=== PATIENT | female | born 1980 | race African-American/Black ===

== ENCOUNTER 2023-01-29 15:06 | Emergency (ER) | payer OTHER ==
[~2023-01-29] VITALS: Ht 175.3 cm; Wt 102.5 kg
[2023-01-29] MEDS ORDERED: cloNIDine HCL 0.1 MG TAB PO ONE (15:30)
[2023-01-29] MEDS ORDERED: KETOROLAC TROMETH 60MG/2ML VIAL IM ONE (15:30)
[2023-01-29] MEDS ORDERED: HYDROcodone-ACET 10/325MG TAB PO ONE (15:30)
[2023-01-29] MEDS ORDERED: CLON0.2T PO (16:56)
[2023-01-29] MEDS ORDERED: HYDR-4798 PO (16:56)
[2023-01-29 17:55] VITALS: BP 157/86
== END 2023-01-29 18:06 | disposition home or self-care (01) ==
LOC: ER 15:06
DX: I16.0 Hypertensive urgency (principal); M54.12 Radiculopathy, cervical region; M47.812 Spondylosis without myelopathy or radiculopathy, cervical region; Z79.899 Other long term (current) drug therapy; Z88.8 Allergy status to other drugs, medicaments and biological substances
CPT/HCPCS: 72125; 73030; 96372; 99285; J1885

== ENCOUNTER 2023-02-10 13:19 | Emergency (ER) | payer OTHER ==
[~2023-02-10] VITALS: Ht 175.3 cm; Wt 101.7 kg
[~2023-02-10 13:19] MED LIST: CLON0.2T PO; HYDR-4798 PO
[2023-02-10 13:39] VITALS: BP 148/108
== END 2023-02-10 17:38 | disposition left against medical advice (07) ==
LOC: ER 13:19
DX: M79.602 Pain in left arm (principal); R20.0 Anesthesia of skin; Z53.21 Procedure and treatment not carried out due to patient leaving prior to being seen by health care provider
CPT/HCPCS: 93005

== ENCOUNTER 2023-04-12 06:51 | Emergency (ER) | payer OTHER ==
[~2023-04-12] VITALS: Ht 175.3 cm; Wt 100.0 kg
[2023-04-12 07:24] VITALS: BP 149/95
[2023-04-12] MEDS ORDERED: TETRACAINE HCL 0.5% OPTH(EYE) SOLN 4ML EACHEYE ONE (07:45)
[2023-04-12] MEDS ORDERED: ERY05OO OP (07:57)
== END 2023-04-12 08:10 | disposition home or self-care (01) ==
LOC: ER 06:51
DX: S05.02XA Injury of conjunctiva and corneal abrasion without foreign body, left eye, initial encounter (principal); I10 Essential (primary) hypertension; Z88.6 Allergy status to analgesic agent; Z88.5 Allergy status to narcotic agent; Z79.1 Long term (current) use of non-steroidal anti-inflammatories (NSAID); Z79.899 Other long term (current) drug therapy; X58.XXXA Exposure to other specified factors, initial encounter; Y93.89 Activity, other specified; Y92.89 Other specified places as the place of occurrence of the external cause; Y99.8 Other external cause status

== ENCOUNTER 2023-05-20 10:47 | Emergency (ER) | payer OTHER ==
[~2023-05-20] VITALS: Ht 175.3 cm; Wt 101.8 kg
[~2023-05-20 10:47] MED LIST changes: +ERY05OO OP
[2023-05-20] MEDS ORDERED: cloNIDine HCL 0.1 MG TAB PO ONE (11:15)
[2023-05-20 11:25] LABS: Basophils # (auto) 0 10 ^3/uL (0-0.2); Basophils % (auto) 0.8 % (0.0-2.0); Eosinophils # (auto) 0 10 ^3/uL (0-0.8); Eosinophils % (auto) 0.3 % (0.0-7.0); Hematocrit 40.1 % (36.0-46.0); Hemoglobin 13.7 g/dL (12.2-16.2); Lymphocytes # (auto) 1.7 10 ^3/uL (0.4-5.4); Lymphocytes % (auto) 39.2 % (10.0-50.0); Mean Corpuscular Hemoglobin 33.1 pg (28.0-32.0); Mean Corpuscular Hgb Conc. 34.1 g/dL (32.0-36.0); Mean Corpuscular Volume 97.1 fL (80.0-100.0); Monocytes # (auto) 0.3 10 ^3/uL (0-1.3); Monocytes % (auto) 6.3 % (0.0-12.0); Neutrophils # (auto) 2.3 10 ^3/uL (1.6-8.6); Neutrophils % (auto) 53.4 % (37.0-80.0); Nucleated Red Blood Cells % 0.3 %; Red Blood Cells 4.13 10^6/uL (4.0-5.20); Red Cell Distribution Width 13.3 % (11.8-14.3); White Blood Cell 4.3 10^3/uL (4.4-10.8)
[2023-05-20 11:47] LABS: Albumin 3.7 g/dL (3.4-5.0); Calcium 8.5 mg/dL (8.5-10.1); Potassium 4.1 mmol/L (3.5-5.1)
[2023-05-20 11:52] LABS: BUN/Creatinine Ratio 13.6 (10.0-20.0); Bilirubin, Total 0.4 mg/dL (0.2-1.0); Total Protein 7.6 g/dL (6.4-8.2)
[2023-05-20 12:13] VITALS: BP 141/93; PULSE 58; RESP 17; TEMP 97.6; O2SAT 100
== END 2023-05-20 12:57 | disposition home or self-care (01) ==
LOC: ER 10:47
DX: I16.0 Hypertensive urgency (principal); I10 Essential (primary) hypertension; R51.9 Headache, unspecified; Z90.710 Acquired absence of both cervix and uterus; Z88.6 Allergy status to analgesic agent
CPT/HCPCS: 36415; 70450; 80053; 84484; 85025; 93005

== ENCOUNTER 2023-09-08 10:12 | Emergency (ER) | payer BC, OTHER ==
[~2023-09-08] VITALS: Ht 172.7 cm; Wt 100.0 kg
[2023-09-08 10:33] VITALS: BP 129/83; PULSE 99; TEMP 99.3
[2023-09-08] MEDS ORDERED: IPRATROPIUM BROM 0.5 MG/2.5ML INH SOL NEB ONE (10:45)
[2023-09-08] MEDS ORDERED: ONDANSETRON ODT 4 MG TAB PO ONE (10:45)
[2023-09-08] MEDS ORDERED: ALBUTEROL MEDNEB 2.5 mg/3ml NEB NEB ONE (10:45)
[2023-09-08 10:47] VITALS: RESP 18; O2SAT 98
[2023-09-08 11:18] LABS: COVID19 ANTIGEN SOFIA FIA NEGATIVE (NEGATIVE); Rapid Influenza B Negative (Negative)
[2023-09-08 11:20] LABS: Rapid Influenza A Positive (Negative)
[2023-09-08] MEDS ORDERED: LORA10CA PO (11:41)
[2023-09-08] MEDS ORDERED: ACET500T58 PO (11:41)
[2023-09-08] MEDS ORDERED: TAMIFLU PO (11:41)
[2023-09-08] MEDS ORDERED: BENZ100C97 PO (11:41)
== END 2023-09-08 11:49 | disposition home or self-care (01) ==
LOC: ER 10:12
DX: J10.1 Influenza due to other identified influenza virus with other respiratory manifestations (principal); I10 Essential (primary) hypertension; Z90.710 Acquired absence of both cervix and uterus; Z20.822 Contact with and (suspected) exposure to COVID-19
CPT/HCPCS: 36415; 71046; 87426; 87804; 94640; 99284; J7644; Q0162

== ENCOUNTER 2023-09-12 07:06 | Emergency (ER) | payer BC, OTHER ==
[~2023-09-12] VITALS: Ht 172.7 cm; Wt 100.0 kg
[~2023-09-12 07:06] MED LIST changes: +ACET500T58 PO; +BENZ100C97 PO; +LORA10CA PO; +TAMIFLU PO
[2023-09-12 08:09] LABS: Basophils # (auto) 0 10 ^3/uL (0-0.2); Basophils % (auto) 0.4 % (0.0-2.0); Eosinophils # (auto) 0 10 ^3/uL (0-0.8); Eosinophils % (auto) 0.1 % (0.0-7.0); Hematocrit 42.4 % (36.0-46.0); Hemoglobin 14.3 g/dL (12.2-16.2); Lymphocytes # (auto) 2.1 10 ^3/uL (0.4-5.4); Lymphocytes % (auto) 27.9 % (10.0-50.0); Mean Corpuscular Hemoglobin 31.8 pg (28.0-32.0); Mean Corpuscular Hgb Conc. 33.6 g/dL (32.0-36.0); Mean Corpuscular Volume 94.6 fL (80.0-100.0); Monocytes # (auto) 0.4 10 ^3/uL (0-1.3); Monocytes % (auto) 5.4 % (0.0-12.0); Neutrophils # (auto) 4.9 10 ^3/uL (1.6-8.6); Neutrophils % (auto) 66.2 % (37.0-80.0); Red Blood Cells 4.48 10^6/uL (4.0-5.20); Red Cell Distribution Width 13.1 % (11.8-14.3); White Blood Cell 7.5 10^3/uL (4.4-10.8)
[2023-09-12 08:30] LABS: Alanine Aminotransferase 55 U/L (7-40); Albumin 5.2 g/dL (3.2-4.8); Alkaline Phosphatase 43 U/L (46-116); Anion Gap 14 (5-15); Aspartate Aminotransferase 30 U/L (13-40); BUN/Creatinine Ratio 11.5 (10.0-20.0); Blood Urea Nitrogen 15 mg/dL (9-23); Calcium 9.9 mg/dL (8.5-10.1); Carbon Dioxide 26 mmol/L (20-30); Chloride 95 mmol/L (98-107); Glucose 102 mg/dL (74-106); Potassium 3.3 mmol/L (3.5-5.1); Sodium 135 mmol/L (136-145)
[2023-09-12 08:31] LABS: Bilirubin, Total 1.5 mg/dL (0.2-1.0); Total Protein 8.6 g/dL (5.7-8.2)
[2023-09-12] MEDS ORDERED: ONDANSETRON HCL 4 MG/2 ML VIAL IV ONE (08:45)
[2023-09-12] MEDS ORDERED: SODIUM CHLORIDE 0.9% 1,000 ML IV ONE (08:45)
[2023-09-12] MEDS ORDERED: ZOFR4T PO (09:21)
[2023-09-12 13:54] VITALS: BP 156/95; PULSE 97; RESP 17; TEMP 98; O2SAT 99
[2023-09-12 14:02] LABS: Urine Bacteria MOD /hpf (None Seen); Urine Blood Negative /uL (Negative); Urine Clarity HAZY (Clear); Urine Color Yellow (Yellow); Urine Hyaline Cast FEW /lpf (0 - 2); Urine Mucus FEW (None Seen); Urine Protein, UAD 1+ (Negative); Urine WBC 18 /hpf (0 - 5); Urine pH 5.5 (5.0-8.0)
[2023-09-12] MEDS ORDERED: AMOX500T3 PO (14:27)
== END 2023-09-12 14:28 | disposition home or self-care (01) ==
LOC: ER 07:06
DX: B34.9 Viral infection, unspecified (principal); I10 Essential (primary) hypertension; Z90.710 Acquired absence of both cervix and uterus; Z88.6 Allergy status to analgesic agent
CPT/HCPCS: 36415; 80053; 81001; 85025; 96361; 96374; 99283; J2405; J7030